=== PATIENT | female | born 1970 | race Caucasian/White ===

== ENCOUNTER 2016-06-18 08:34 | Outpatient (CLI) ==
[2016-06-18 10:12] LABS: ANION GAP 14.6; POTASSIUM 4.6 mmol/L (3.5-5.10)
[2016-06-18 10:13] LABS: ALBUMIN 3.4 g/dL (3.4-5.0); ALBUMIN/GLOBULIN RATIO 0.94; BILIRUBIN,TOTAL 0.45 mg/dL (0.00-1.20); BUN/CREATININE RATIO 15.68; CALCIUM 8.9 mg/dL (8.2-10.2); CREATININE 1.02 mg/dL (0.60-1.30)
== END 2016-06-18 08:35 | disposition home or self-care (01) ==
LOC: LAB 08:34
PROVIDERS: ATTEND Internal Medicine
DX: K27.9 Peptic ulcer, site unspecified, unspecified as acute or chronic, without hemorrhage or perforation (principal); I10 Essential (primary) hypertension
CPT/HCPCS: 36415; 80053

== ENCOUNTER 2017-09-16 08:31 | Outpatient (CLI) | END 2017-09-16 08:32 | disposition home or self-care (01) | LOC: LAB 08:31 | PROVIDERS: ATTEND Internal Medicine | DX: E78.5 Hyperlipidemia, unspecified (principal); I10 Essential (primary) hypertension; K27.9 Peptic ulcer, site unspecified, unspecified as acute or chronic, without hemorrhage or perforation | CPT/HCPCS: 36415; 80053; 80061; 85027 ==

== ENCOUNTER 2018-09-26 08:53 | Outpatient (CLI) | END 2018-09-26 08:54 | disposition home or self-care (01) | LOC: LAB 08:53 | PROVIDERS: ATTEND Physician Assistant | DX: E11.9 Type 2 diabetes mellitus without complications (principal) | CPT/HCPCS: 36415; 80053; 80061; 83036; 83735; 84550 ==